=== PATIENT | male | born 1995 | race Caucasian/White ===

== ENCOUNTER 2022-05-22 19:36 | Emergency (ER) | payer OTHER, SELFPAY ==
[2022-05-22] MEDS ORDERED: Morphine 4 MG/ML VIAL ONE (19:55)
[2022-05-22] MEDS ORDERED: Ondansetron PF 4 MG/2 ML Vial ONE (19:56)
[2022-05-22] MEDS ORDERED: Ketorolac Tromethamine 30 MG/ML VIAL ONE (20:37)
== END 2022-05-22 21:15 | disposition home or self-care (01) ==
LOC: NAV ERS 19:36
DX: S00.83XA Contusion of other part of head, initial encounter (principal); S09.90XA Unspecified injury of head, initial encounter; I10 Essential (primary) hypertension; E11.9 Type 2 diabetes mellitus without complications; E78.00 Pure hypercholesterolemia, unspecified; Z79.899 Other long term (current) drug therapy; Z79.84 Long term (current) use of oral hypoglycemic drugs; W22.8XXA Striking against or struck by other objects, initial encounter
CPT/HCPCS: 70450; 70486; 96374; 96375; J1885; J2270; J2405

== ENCOUNTER 2022-12-26 16:26 | Emergency (ER) | payer BC ==
[2022-12-26 17:48] LABS: #Basophils 0.1 thou/uL (0.0-0.2); #Eosinphils 0.1 thou/uL (0.0-0.7); #Lymphocytes 2.9 thou/uL (1.20-3.40); #Monocytes 0.9 thou/uL (0.11-0.59); #Neutrophils 4.8 thou/uL (1.40-6.50); %Basophils 0.7 % (0.0-1.0); %Eosinophils 0.8 % (0.0-10.0); %Lymphocytes 32.8 % (21.0-51.0); %Monocytes 10.7 % (0.0-10.0); %Neutrophils 54.9 % (42.0-75.0); Hematocrit 46.3 % (42.0-52.0); Hemoglobin 15.5 g/dL (14.0-18.0); Mean Corpuscular HGB CONC 33.4 g/dL (32.0-36.0); Mean Corpuscular Hemoglobin 29.6 pg (27.0-31.0); Mean Corpuscular Volume 88.4 fl (78.0-98.0); Mean Platelet Volume 7.1 fL (7.4-10.4); Platelet Count 251 10x3/uL (130-400); RBC Distribution Width 11.5 % (11.5-14.5); Red Blood Cell (RBC) Count 5.23 mill/uL (4.70-6.10); White Blood Cell (WBC) Count 8.7 10x3/uL (4.8-10.8)
[2022-12-26] MEDS ORDERED: Ondansetron PF 4 MG/2 ML Vial ONE (18:04)
[2022-12-26] MEDS ORDERED: Sodium Chloride 0.9% 1,000 ML ONE (18:04)
[2022-12-26 18:08] LABS: Troponin I Less than 0.010 ng/mL (< 0.028)
[2022-12-26 18:11] LABS: ALT (SGPT) 33 U/L (8-55); AST (SGOT) 16 U/L (5-34); Albumin 4.1 g/dL (3.5-5.0); Alkaline Phosphatase 68 U/L (40-110); Anion Gap 17 mmol/L (10-20); BUN (Urea Nitrogen) 10 mg/dL (8.9-20.6); Bilirubin, Total 0.7 mg/dL (0.2-1.2); Calc. Creatinine Clearance 0 mL/min (70-130); Calcium 9.3 mg/dL (7.8-10.44); Carbon Dioxide 21 mmol/L (22-29); Chloride 103 mmol/L (98-107); Estimated GFR 122; Globulin 2.9 g/dL (2.4-3.5); Glucose 254 mg/dL (70-105); Lipase 26 U/L (8-78); Sodium 137 mmol/L (136-145)
[2022-12-26] MEDS ORDERED: Ibuprofen 200 MG TAB ONE (18:16)
== END 2022-12-26 19:00 | disposition home or self-care (01) ==
LOC: NAV ERS 16:26
DX: J06.9 Acute upper respiratory infection, unspecified (principal); B34.9 Viral infection, unspecified; E78.00 Pure hypercholesterolemia, unspecified; E11.9 Type 2 diabetes mellitus without complications; I10 Essential (primary) hypertension; Z20.822 Contact with and (suspected) exposure to COVID-19; Z79.899 Other long term (current) drug therapy
CPT/HCPCS: 36415; 80053; 83690; 84484; 85025; 87635; 87804; 96361; 96374; J2405; J7050

== ENCOUNTER 2023-01-11 23:39 | Emergency (ER) | payer BC ==
[2023-01-11 23:59] LABS: Bilirubin Negative (Negative); Blood, Urine Negative (Negative); Clarity Clear (Clear); Glucose, Urine (Dipstick) Negative (Negative); Ketone, Urine Negative (Negative); Leukocyte Negative (Negative); Nitrite Negative (Negative); Protein, Urine (Dipstick) 100 mg/dL (Neg-Trace); Urobilinogen 0.2 mg/dL (Less than 2)
[2023-01-12 00:03] LABS: Bacteria/HPF None Seen HPF (None Seen); CAUTI Indications for Culture Pelvic or flank pain; RBC/HPF None Seen HPF (0-3); Specific Gravity, Urine 1.035 (1.002-1.036); Squamous Epithelial None Seen HPF (0-3); WBC/HPF None Seen HPF (0-3)
[2023-01-12 00:04] LABS: Urine Culture Reflex No No
[2023-01-12] MEDS ORDERED: Sodium Chloride 0.9% 1,000 ML ONE (00:18)
[2023-01-12] MEDS ORDERED: Ketorolac Tromethamine 30 MG/ML VIAL ONE (00:18)
[2023-01-12] MEDS ORDERED: Ondansetron PF 4 MG/2 ML Vial ONE (00:18)
[2023-01-12 00:43] LABS: Hematocrit 49.9 % (42.0-52.0); Hemoglobin 16.8 g/dL (14.0-18.0); Mean Corpuscular Volume 87.9 fl (78.0-98.0); Red Blood Cell (RBC) Count 5.68 mill/uL (4.70-6.10)
[2023-01-12 00:44] LABS: #Basophils 0.1 thou/uL (0.0-0.2); #Eosinphils 0.1 thou/uL (0.0-0.7); #Lymphocytes 3.2 thou/uL (1.20-3.40); #Monocytes 0.9 thou/uL (0.11-0.59); #Neutrophils 5.7 thou/uL (1.40-6.50); %Basophils 0.9 % (0.0-1.0); %Eosinophils 0.9 % (0.0-10.0); %Lymphocytes 31.9 % (21.0-51.0); %Monocytes 9.3 % (0.0-10.0); Mean Corpuscular HGB CONC 33.7 g/dL (32.0-36.0); Mean Corpuscular Hemoglobin 29.6 pg (27.0-31.0); Mean Platelet Volume 7.2 fL (7.4-10.4); Platelet Count 250 10x3/uL (130-400); RBC Distribution Width 11.5 % (11.5-14.5)
[2023-01-12 01:11] LABS: ALT (SGPT) 25 U/L (8-55); AST (SGOT) 13 U/L (5-34); Albumin 4.3 g/dL (3.5-5.0); Alkaline Phosphatase 77 U/L (40-110); BUN (Urea Nitrogen) 16 mg/dL (8.9-20.6); Bilirubin, Total 0.3 mg/dL (0.2-1.2); Calc. Creatinine Clearance 0 mL/min (70-130); Calcium 9.7 mg/dL (7.6-10.4); Carbon Dioxide 22 mmol/L (22-29); Chloride 100 mmol/L (98-107); Estimated GFR 114; Globulin 3.6 g/dL (2.4-3.5); Glucose 293 mg/dL (70-105); Lipase 24 U/L (8-78); Potassium 3.8 mmol/L (3.5-5.1); Protein, Total 7.9 g/dL (6.0-8.3); Sodium 136 mmol/L (136-145)
== END 2023-01-12 02:00 | disposition home or self-care (01) ==
LOC: NAV ERS 23:39
DX: A08.4 Viral intestinal infection, unspecified (principal); I10 Essential (primary) hypertension; E11.9 Type 2 diabetes mellitus without complications; E78.00 Pure hypercholesterolemia, unspecified; Z79.899 Other long term (current) drug therapy; Z79.4 Long term (current) use of insulin
CPT/HCPCS: 80053; 81001; 83690; 85025; 96365; 96375; J1885; J2405; J7050

== ENCOUNTER 2023-01-18 05:00 | Emergency (ER) | payer BC ==
[2023-01-18] MEDS ORDERED: Penicillin V Potassium 250 MG TAB ONE (05:38)
[2023-01-18] MEDS ORDERED: Ibuprofen 800 MG TAB ONE (05:38)
== END 2023-01-18 05:53 | disposition home or self-care (01) ==
LOC: NAV ERS 05:00
DX: J02.0 Streptococcal pharyngitis (principal); I10 Essential (primary) hypertension; E11.9 Type 2 diabetes mellitus without complications; E78.00 Pure hypercholesterolemia, unspecified; Z79.4 Long term (current) use of insulin; Z79.899 Other long term (current) drug therapy
CPT/HCPCS: 87081; 87430; 99283

== ENCOUNTER 2023-03-17 16:34 | Emergency (ER) | payer BC ==
[2023-03-17] MEDS ORDERED: Acetaminophen 500 MG TAB ONE (17:07)
[2023-03-17] MEDS ORDERED: Ondansetron ODT 4 MG TAB ONE (17:08)
== END 2023-03-17 17:15 | disposition home or self-care (01) ==
LOC: NAV ERS 16:34
DX: K52.9 Noninfective gastroenteritis and colitis, unspecified (principal); I10 Essential (primary) hypertension; E11.9 Type 2 diabetes mellitus without complications; Z79.4 Long term (current) use of insulin; Z79.899 Other long term (current) drug therapy
CPT/HCPCS: 99283; Q0162

== ENCOUNTER 2023-07-05 14:07 | Emergency (ER) | payer BC ==
[~2023-07-05 14:07] MED LIST: Iopamidol 370 76% 100 ML VIAL ONE
[2023-07-05 15:17] LABS: #Basophils 0.1 thou/uL (0.0-0.2); #Eosinphils 0.1 thou/uL (0.0-0.7); #Lymphocytes 2.2 thou/uL (1.20-3.40); #Monocytes 0.8 thou/uL (0.11-0.59); #Neutrophils 13.6 thou/uL (1.40-6.50); %Basophils 0.7 % (0.0-1.0); %Eosinophils 0.5 % (0.0-10.0); %Lymphocytes 13.1 % (21.0-51.0); %Monocytes 4.8 % (0.0-10.0); %Neutrophils 80.9 % (42.0-75.0); Hematocrit 53.9 % (42.0-52.0); Hemoglobin 18.5 g/dL (14.0-18.0); Mean Corpuscular HGB CONC 34.4 g/dL (32.0-36.0); Mean Corpuscular Hemoglobin 30.3 pg (27.0-31.0); Mean Corpuscular Volume 88.1 fl (78.0-98.0); Mean Platelet Volume 7.9 fL (7.4-10.4); Platelet Count 280 10x3/uL (130-400); RBC Distribution Width 11.2 % (11.5-14.5); Red Blood Cell (RBC) Count 6.11 mill/uL (4.70-6.10); White Blood Cell (WBC) Count 16.8 10x3/uL (4.8-10.8)
[2023-07-05 15:33] LABS: ALT (SGPT) 31 U/L (8-55); AST (SGOT) 14 U/L (5-34); Albumin 4.4 g/dL (3.5-5.0); Alkaline Phosphatase 87 U/L (40-110); Anion Gap 17 mmol/L (10-20); BUN (Urea Nitrogen) 9 mg/dL (8.9-20.6); Bilirubin, Total 0.7 mg/dL (0.2-1.2); Calc. Creatinine Clearance 0 mL/min (70-130); Calcium 9.5 mg/dL (7.8-10.44); Carbon Dioxide 25 mmol/L (22-29); Chloride 97 mmol/L (98-107); Estimated GFR 120; Globulin 3.9 g/dL (2.4-3.5); Glucose 299 mg/dL (70-105); Lipase 20 U/L (8-78); Potassium 3.9 mmol/L (3.5-5.1); Protein, Total 8.3 g/dL (6.0-8.3); Sodium 135 mmol/L (136-145)
[2023-07-05] MEDS ORDERED: Ondansetron PF 4 MG/2 ML Vial ONE (15:38)
[2023-07-05] MEDS ORDERED: Sodium Chloride 0.9% 1,000 ML ONE (16:59)
[2023-07-05] MEDS ORDERED: Dicyclomine 20 MG/2 ML VIAL ONE (16:59)
== END 2023-07-05 19:45 | disposition home or self-care (01) ==
LOC: NAV ERS 14:07
DX: K52.9 Noninfective gastroenteritis and colitis, unspecified (principal); E11.9 Type 2 diabetes mellitus without complications; I10 Essential (primary) hypertension; E78.00 Pure hypercholesterolemia, unspecified; Z87.891 Personal history of nicotine dependence; Z79.4 Long term (current) use of insulin; Z79.899 Other long term (current) drug therapy
CPT/HCPCS: 74177; 80053; 83605; 83690; 85025; 96361; 96372; 96374; J2405; J7050; Q9967

== ENCOUNTER 2024-01-07 23:33 | Emergency (ER) | payer SELFPAY ==
[2024-01-08] MEDS ORDERED: Dexamethasone 4 mg/ml Vial ONE (00:04)
[2024-01-08] MEDS ORDERED: Amoxicillin/Potassium Clav 875 MG TAB ONE (00:04)
== END 2024-01-08 00:38 | disposition home or self-care (01) ==
LOC: NAV ERS 23:33
DX: J02.9 Acute pharyngitis, unspecified (principal); I10 Essential (primary) hypertension; E11.9 Type 2 diabetes mellitus without complications; Z87.891 Personal history of nicotine dependence; Z79.899 Other long term (current) drug therapy
CPT/HCPCS: 96372; 99283; J1100